=== PATIENT | female | born 1990 ===

== ENCOUNTER 2018-11-17 12:25 | Emergency (ER) | payer OTHER ==
--- NOTE | 2018-11-17 13:14 | C.PDOC ---
History Of Present Illness 28 year old female presents to the ED complaining of vaginal spotting for 4 days, associated with pelvic pain. Reports similar prior episodes on and off since 10/07. Patient states she was evaluated at [place], had an ultrasound, and was told she had a miscarriage. She reports following up at [facility] and the repeat beta had dropped to 1000. Patient states her home tests have been positive in the interim. She denies any dizziness, lightheadedness, nausea, vomiting, diarrhea, or visual changes. Time Seen by Provider: 11/17/18 12:40 Chief Complaint (Nursing): Abdominal Pain History Per: Patient History/Exam Limitations: no limitations Onset/Duration Of Symptoms: Days Current Symptoms Are (Timing): Still Present Past Medical History Reviewed: Historical Data, Nursing Documentation, Vital Signs Vital Signs: Last Vital Signs Temp 99.4 F 11/17/18 12:28 Pulse 84 11/17/18 12:28 Resp 18 11/17/18 12:28 BP 118/78 11/17/18 12:28 Pulse Ox 100 11/17/18 12:28 - Medical History PMH: No Chronic Diseases Surgical History: No Surg Hx Family History: States: No Known Family Hx - Social History Hx Tobacco Use: No Hx Alcohol Use: No Hx Substance Use: No - Immunization History Hx Tetanus Toxoid Vaccination: No Hx Influenza Vaccination: Yes Hx Pneumococcal Vaccination: No Review Of Systems Constitutional: Negative for: Fever, Chills Eyes: Negative for: Vision Change Cardiovascular: Negative for: Chest Pain Respiratory: Negative for: Shortness of Breath Gastrointestinal: Negative for: Nausea, Vomiting, Diarrhea Genitourinary: Positive for: Vaginal Bleeding. Negative for: Dysuria, Vaginal Discharge Neurological: Negative for: Weakness, Dizziness Physical Exam - Physical Exam Appears: Non-toxic, No Acute Distress Skin: Warm, Dry, No Rash Head: Atraumatic, Normacephalic Eye(s): bilateral: Normal Inspection Oral Mucosa: Moist Neck: Normal ROM Chest: Symmetrical Cardiovascular: Rhythm Regular, No Murmur Respiratory: Normal Breath Sounds, No Rales, No Rhonchi, No Wheezing Gastrointestinal/Abdominal: Bowel Sounds (active), Soft, No Tenderness, No Guarding Back: Normal Inspection, No Vertebral Tenderness Extremity: Bilateral: Atraumatic, Normal Color And Temperature, Normal ROM Neurological/Psych: Oriented x3, Normal Speech Gait: Steady ED Course And Treatment - Laboratory Results Result Diagrams: 11/17/18 13:28 11/17/18 13:28 O2 Sat by Pulse Oximetry: 100 (RA) Pulse Ox Interpretation: Normal - CT Scan/US Transvaginal US Other Rad Studies (CT/US): Read By Radiologist, Radiology Report Reviewed CT/US Interpretation: FINDINGS: UTERUS: Measures 7.9 x 4.6 x 5.6 cm. Ante verted. 1.3 x 1.4 x 1.7 cm heterogeneous uterine mass consistent with intramural fundal fibroid. ENDOMETRIUM: Heterogeneous thickened vascular endometrium measuring approximately 2 cm in diameter. CERVIX: No cervical abnormality identified. RIGHT OVARY: Measures 2.7 x 1.7 x 2.4 cm. Blood flow is demonstrated. LEFT OVARY: Measures 2.6 x 1.3 x 2.8 cm. Blood flow is demonstrated. FREE FLUID: No significant free fluid noted. OTHER FINDINGS: None. IMPRESSION: Abnormally thickened heterogeneous and vascular appearance of the endometrium. Correlate clinically. In the proper clinical setting appearance consistent with retained products of conception. 1.3 x 1.4 x 1.7 cm heterogeneous uterine mass consistent with intramural fundal fibroid. Medical Decision Making Medical Decision Making: Impression: Persistent vaginal bleeding and pelvic pain Plan: --Blood work with beta quant --Urinalysis --Tylenol 650 mg PO Labs reviewed, HCG positive. Pelvic US ordered. [address] Jose LEE hooker on to discuss case. She agreed based on histor y and findings, there is no likelyhood of retained POC. She recommends discharge home with Rx for methergine. Patient re-evaluated and remained well in no acute distress. Vital signs normal. I explained all results to the patient and provided copy of results. Recommend follow up in the clinic and to repeat bloodwork and US in one week. Disposition Counseled Patient/Family Regarding: Diagnosis, Need For Followup, Rx Given - Disposition Referrals: [facility] [Outside] [facility] [Outside] [facility] [Outside] Disposition: HOME/ ROUTINE Disposition Time: 15:31 Condition: GOOD Additional Instructions: Usted fue evaluado hoy por rosemary sntomas agudos. Los estudios realizados fueron normales. Jeannine medicamentos luis alfredo veces al da judie 3 rene. [place] medicamentos para el dolor (Tylenol o Advil) segn sea necesario. Asael un seguimiento en la clnica o con shelley mdico para obtener ms atencin y manejo. Debes repetir el anlisis de hannah hasta el nivel hormonal 0 Prescriptions: Methylergonovine [Methergine] 0.2 mg PO TID #9 tab Instructions: Miscarriage (DC) Forms: [employer] (Swazi) Print Language: K[place] - POA Present On Arrival: None - Clinical Impression Clinical Impression: Menses, irregular, Miscarriage - PA / PROCESS TANK TENDER / Resident Statement MD/DO has reviewed & agrees with the documentation as recorded. - Scribe Statement The provider has reviewed the documentation as recorded by the Trishaibfouzia French All medical record entries made by the Scribe were at my direction and personally dictated by me. I have reviewed the chart and agree that the record accurately reflects my personal performance of the history, physical exam, medical decision making, and the department course for this patient. I have also personally directed, reviewed, and agree with the discharge instructions and disposition.
[2018-11-17 13:22] VITALS: RESP 18; O2SAT 100
[2018-11-17 13:41] LABS: BASO % 0.3 % (0.0-2.0); EOS % 0.9 % (0.0-4.0); LYMPH # 1.4 K/uL (1.0-4.3); LYMPH % 32.4 % (20.0-40.0); MEAN CELL VOLUME 89.8 fL (81.0-99.0); MEAN CORPUSCULAR HEMOGLOBIN 30.3 pg (27.0-31.0); MEAN CORPUSCULAR HGB CONC 33.7 g/dL (33.0-37.0); MEAN PLATELET VOLUME 9.3 fL (7.2-11.7); MONO # 0.5 K/uL (0.0-0.8); MONO % 11.2 % (0.0-10.0); NEUT # 2.4 K/uL (1.8-7.0); NEUT % 55.2 % (50.0-75.0); RBC 4.29 Mil/uL (3.80-5.20); RED CELL DISTRIBUTION WIDTH 13.3 % (11.5-14.5); WHITE BLOOD COUNT 4.3 K/uL (4.8-10.8)
[2018-11-17 13:45] LABS: SQUAMOUS EPITHIAL 4 /hpf (0-5); URINE BACTERIA RARE (<OCC); URINE BILIRUBIN NEGATIVE (NEGATIVE); URINE BLOOD 2+ (NEGATIVE); URINE CLARITY Clear (Clear); URINE COLOR Amber (YELLOW); URINE GLUCOSE (UA) NORMAL (Normal); URINE LEUKOCYTE ESTERASE NEG Leu/uL (Negative); URINE PROTEIN NEGATIVE (NEGATIVE); URINE UROBILINOGEN NORMAL mg/dL (0.2-1.0)
[2018-11-17 13:59] LABS: ALB/GLOB RATIO 1.4 (1.0-2.1); ALBUMIN 4.5 g/dL (3.5-5.0); ALT/SGPT 19 U/L (9-52); AST/SGOT 38 U/L (14-36); BLOOD UREA NITROGEN 14 mg/dL (7-17); CALCIUM 9.2 mg/dl (8.6-10.4); GFR NON-AFRICAN AMERICAN > 60
--- NOTE | 2018-11-17 15:13 | US ---
Date of service: 11/17/2018 HISTORY: pelvic pain, bleeding, h.o recent AB 10/07/18 COMPARISON: None available. TECHNIQUE: Real-time transabdominal pelvic ultrasound was performed. In addition a transvaginal pelvic ultrasound was necessary to better depict pelvic anatomy. FINDINGS: UTERUS: Measures 7.9 x 4.6 x 5.6 cm. Anteverted. 1.3 x 1.4 x 1.7 cm heterogeneous uterine mass consistent with intramural fundal fibroid. ENDOMETRIUM: Heterogeneous thickened vascular endometrium measuring approximately 2 cm in diameter. CERVIX: No cervical abnormality identified. RIGHT OVARY: Measures 2.7 x 1.7 x 2.4 cm. Blood flow is demonstrated. LEFT OVARY: Measures 2.6 x 1.3 x 2.8 cm. Blood flow is demonstrated. FREE FLUID: No significant free fluid noted. OTHER FINDINGS: None. IMPRESSION: Abnormally thickened heterogeneous and vascular appearance of the endometrium. Correlate clinically. In the proper clinical setting appearance consistent with retained products of conception. 1.3 x 1.4 x 1.7 cm heterogeneous uterine mass consistent with intramural fundal fibroid.
[2018-11-17 16:20] VITALS: BP 126/77; PULSE 85; TEMP 98.9
== END 2018-11-17 16:21 | disposition home or self-care (01) ==
LOC: C.ER 12:25
DX: O03.9 Complete or unspecified spontaneous abortion without complication (principal); N92.6 Irregular menstruation, unspecified

== ENCOUNTER 2018-12-08 14:26 | Emergency (ER) | payer OTHER ==
[2018-12-08 15:02] VITALS: BMI 35.0
[2018-12-08 15:05] VITALS: RESP 18
--- NOTE | 2018-12-08 15:22 | C.PDOC ---
History Of Present Illness 28yo female, comes to ER reporting she has suprapubic abdominal pain x 3 days. Patient states she had a recent miscarriage in Sep 2018 and did not need a DNC at that time. She was seen in this ER earlier this month due to similar pain, had an ultrasound which showed inflammation. Patint states her LMP was on 11/03 and since then she has had intermittent spotting. Otherwise no fever, chills, chest pain, shortness of breath, vomiting, diarrhea, vaginal discharge or gross vaginal bleeding. No additional complaints. Time Seen by Provider: 12/08/18 15:22 Chief Complaint (Nursing): Abdominal Pain History Per: Patient History/Exam Limitations: no limitations Onset/Duration Of Symptoms: Days Current Symptoms Are (Timing): Still Present Location Of Pain/Discomfort: Suprapubic Quality Of Discomfort: "Pain" Abnormal Vaginal Bleeding: No Last Menstral Period: 11/03/18 Miscarriage: 1 Past Medical History Reviewed: Historical Data, Nursing Documentation, Vital Signs Vital Signs: Last Vital Signs Temp 98.1 F 12/08/18 15:02 Pulse 77 12/08/18 15:02 Resp 18 12/08/18 15:02 BP 110/72 12/08/18 15:02 Pulse Ox 99 12/08/18 15:02 - Medical History PMH: No Chronic Diseases Surgical History: No Surg Hx Family History: States: No Known Family Hx - Social History Hx Tobacco Use: No Hx Alcohol Use: No Hx Substance Use: No - Immunization History Hx Tetanus Toxoid Vaccination: No Hx Influenza Vaccination: No Hx Pneumococcal Vaccination: No Review Of Systems Except As Marked, All Systems Reviewed And Found Negative. Constitutional: Negative for: Fever, Chills Cardiovascular: Negative for: Chest Pain Respiratory: Negative for: Shortness of Breath Gastrointestinal: Positive for: Abdominal Pain Genitourinary: Negative for: Vaginal Discharge, Vaginal Bleeding Physical Exam - Physical Exam Appears: Non-toxic, No Acute Distress Skin: Normal Color Head: Atraumatic, Normacephalic Eye(s): bilateral: Normal Inspection Neck: Normal ROM, Supple Chest: Symmetrical Cardiovascular: Rhythm Regular Respiratory: Normal Breath Sounds Gastrointestinal/Abdominal: Soft, Tenderness (suparpubic), No Guarding, No Rebound Back: Normal Inspection Extremity: Normal ROM ED Course And Treatment - Laboratory Results Result Diagrams: 12/08/18 16:13 12/08/18 16:13 O2 Sat by Pulse Oximetry: 99 (RA) Pulse Ox Interpretation: Normal - CT Scan/US US Transvaginal Other Rad Studies (CT/US): Radiology Report Reviewed CT/US Interpretation: FINDINGS: UTERUS: Measures 8.2 x 4.5 x 5.6 cm. Anteverted. 1.3 x 1.4 x 1.3 cm fundal uterine fibroid. ENDOMETRIUM: Heterogeneous appearing endometrium measures approximately 2.0 cm in diameter. Increased vascularity. CERVIX: No cervical abnormality identified. RIGHT OVARY: Measures 3.3 x 1.9 x 3.1 cm. Blood flow is demonstrated. Complex appearing cysts measuring approximately 1.9 x 1.0 x 1.8 cm and 1.4 x 1.0 x 1.3 cm. LEFT OVARY: Measures 2.6 x 1.7 x 2.3 cm. Blood flow is demonstrated. FREE FLUID: No significant free fluid noted. OTHER FINDINGS: None. IMPRESSION: Abnormal thickened hypervascular appearance of the endometrium persists. In the proper clinical setting appearance consistent with retained products of conception. Alternatives including endometritis may be considered. Correlate clinically. Uterine fibroid. Complex appearing right ovarian cysts. Attention on follow-up. Medical Decision Making Medical Decision Mak[place]o female, recent history of a miscarriage, complaining of suprapubic abdominal pain. No current abnl vaginal d/c or rash. Patient had previous US showing inflammation. Likely PID. Plan: -- Labs -- US Transvaginal 1822 US report reviewed, and indicates RPOC. Labs reviewed, patient has a beta-hcg level of 90; prior records reviewed, patient had beta-hcg of 83.21 on 11/17 and 92.70 today. 1854 Discussed with , OB retail sales consultant, who states she evaluated patient during her last visit and recommended methergine prescription. Patient states she did not take methergine as the "copay was too high"; discussed with patient importance of taking prescribed medication and states she will take it this time. pt in NAD, agreeable to plan. advises patient to be discharged home with prescription for methergine; patient given instructions for follow up at women's health clinic/OBGYN Disposition - Disposition Referrals: Zari Garcia DO [Staff Provider] - [facility] [Outside] [facility] [Outside] [facility] [Outside] [facility] [Outside] Disposition: HOME/ ROUTINE Disposition Time: 19:14 Condition: GOOD Additional Instructions: MARIA GAY, thank you for letting us take care of you today. Your provider was Juan Antonio Soliman and you were treated for PELVIC PAIN. The emergency medical care you received today was directed at your acute symptoms. If you were prescribed any medication, please fill it and take as directed. It may take several days for your symptoms to resolve. Return to the Emergency Department if your symptoms worsen, do not improve, or if you have any other problems. Please contact your doctor or call one of the physicians/clinics you have been referred to that are listed on the Patient Visit Information form that is included in your discharge packet. Bring any paperwork you were given at d ischarge with you along with any medications you are taking to your follow up visit. Our treatment cannot replace ongoing medical care by a primary care provider outside of the emergency department. Thank you for allowing the [facility] team to be part of your care today. If you had an X-Ray or CT scan: A Radiologist will review the ED reading if any change in treatment is needed we will contact you. If you had a blood, urine, or wound culture: It will take several days for the results, if any change in treatment is needed we will contact you. If you had an STI test: It will take 48 hours for the results. Please call after 1 week if you have not heard back. Prescriptions: Methylergonovine Maleate [Methergine] 0.2 mg PO Q8H 3 Days #9 tablet Instructions: Acute Pelvic Pain Forms: [employer] (Czech), [employer] (Yemeni) Print Language: ARABIC - Clinical Impression Clinical Impression: Retained products of conception - Scribe Statement The provider has reviewed the documentation as recorded by the Marcelo Michaud Provider Attestation: All medical record entries made by the Marcelo were at my direction and personally dictated by me. I have reviewed the chart and agree that the record accurately reflects my personal performance of the history, physical exam, medical decision making, and the department course for this patient. I have also personally directed, reviewed, and agree with the discharge instructions and disposition.
[2018-12-08 16:14] LABS: HCG,QUALITATIVE URINE POSITIVE (NEGATIVE)
[2018-12-08 16:16] LABS: SQUAMOUS EPITHIAL 3 /hpf (0-5); URINE BACTERIA RARE (<OCC); URINE BILIRUBIN NEGATIVE (NEGATIVE); URINE BLOOD NEGATIVE (NEGATIVE); URINE CLARITY Clear (Clear); URINE COLOR Yellow (YELLOW); URINE GLUCOSE (UA) NORMAL (Normal); URINE LEUKOCYTE ESTERASE NEG Leu/uL (Negative); URINE PROTEIN NEGATIVE (NEGATIVE); URINE UROBILINOGEN NORMAL mg/dL (0.2-1.0)
[2018-12-08 16:30] LABS: BASO % 0.3 % (0.0-2.0); EOS % 0.6 % (0.0-4.0); HEMOGLOBIN 13.5 g/dL (11.0-16.0); LYMPH # 1.7 K/uL (1.0-4.3); LYMPH % 34.6 % (20.0-40.0); MEAN CELL VOLUME 90.8 fL (81.0-99.0); MEAN CORPUSCULAR HEMOGLOBIN 29.9 pg (27.0-31.0); MEAN PLATELET VOLUME 9.5 fL (7.2-11.7); MONO # 0.5 K/uL (0.0-0.8); MONO % 10.6 % (0.0-10.0); NEUT # 2.7 K/uL (1.8-7.0); NEUT % 53.9 % (50.0-75.0); RBC 4.49 Mil/uL (3.80-5.20); RED CELL DISTRIBUTION WIDTH 13.6 % (11.5-14.5)
[2018-12-08 16:43] LABS: INR 1.1; PROTHROMBIN TIME 12.2 SECONDS (9.7-12.2)
[2018-12-08 17:08] LABS: ALB/GLOB RATIO 1.4 (1.0-2.1); ALBUMIN 4.7 g/dL (3.5-5.0); ALT/SGPT 7 U/L (9-52); AST/SGOT 29 U/L (14-36); BLOOD UREA NITROGEN 13 mg/dL (7-17); CALCIUM 9.5 mg/dl (8.6-10.4); GFR NON-AFRICAN AMERICAN > 60; LIPASE 192 U/L (23-300)
--- NOTE | 2018-12-08 18:24 | US ---
Date of service: 12/08/2018 HISTORY: suprapubic abdominal pain COMPARISON: Pelvic ultrasound performed 11/17/18 TECHNIQUE: Real-time transabdominal pelvic ultrasound was performed. In addition a transvaginal pelvic ultrasound was necessary to better depict pelvic anatomy. FINDINGS: UTERUS: Measures 8.2 x 4.5 x 5.6 cm. Anteverted. 1.3 x 1.4 x 1.3 cm fundal uterine fibroid. ENDOMETRIUM: Heterogeneous appearing endometrium measures approximately 2.0 cm in diameter. Increased vascularity. CERVIX: No cervical abnormality identified. RIGHT OVARY: Measures 3.3 x 1.9 x 3.1 cm. Blood flow is demonstrated. Complex appearing cysts measuring approximately 1.9 x 1.0 x 1.8 cm and 1.4 x 1.0 x 1.3 cm. LEFT OVARY: Measures 2.6 x 1.7 x 2.3 cm. Blood flow is demonstrated. FREE FLUID: No significant free fluid noted. OTHER FINDINGS: None. IMPRESSION: Abnormal thickened hypervascular appearance of the endometrium persists. In the proper clinical setting appearance consistent with retained products of conception. Alternatives including endometritis may be considered. Correlate clinically. Uterine fibroid. Complex appearing right ovarian cysts. Attention on follow-up. Discussed with Dr. Soliman on 12/08/18 at 6:17 p.m.
[2018-12-08 18:44] VITALS: BP 107/78; PULSE 82; TEMP 98.2
[2018-12-08 18:54] VITALS: O2SAT 99
== END 2018-12-08 19:45 | disposition home or self-care (01) ==
LOC: C.ER 14:26
DX: O03.4 Incomplete spontaneous abortion without complication (principal)